=== PATIENT | female | born 1945 | race Asian ===

== ENCOUNTER → 2019-05-19 | Day surgery (SDC) | payer OTHER ==
--- NOTE | 2019-05-22 10:58 | OP ---
DATE OF OPERATION: 05/19/2019 PREOPERATIVE DIAGNOSIS: Left breast mass at the 5 o'clock position 1-2 cm from the nipple. POSTOPERATIVE DIAGNOSIS: Left breast mass at the 5 o'clock position 1-2 cm from the nipple. PROCEDURE: Left ultrasound-guided core biopsy and clip placement. ANESTHESIA: Local. ATTENDING SURGEON: Sluma Stapleton MD ESTIMATED BLOOD LOSS: Minimal. COMPLICATIONS: None. PROCEDURE: Patient was made aware of the risks and benefits of the procedure and consented. She was placed in a supine position. Under sterile conditions, 1% lidocaine for local anesthesia, a small cheryl was made in the skin. Using a 13-gauge suction biopsy device via lateral approach under ultrasound guidance, multiple cores were obtained and submitted to Pathology. Likewise, under ultrasound guidance, a bowtie clip was placed into the biopsy region. Well tolerated by patient. Steri-Strips and a sterile bandage was applied. We will contact her with the results. SULMA STAPLETON M.D. [id number]
--- NOTE | 2019-05-22 14:32 | PATH ---
Surgical Pathology Report Patient Name: ANGEL MUNOZ [facility]. Rec. #: [id number] /Age/Gender: 1945 (Age: 74) / F Account: [id number] Location: [facility] RAD[facility] U Taken: 05/19/2019 Received: 05/19/2019 Reported: 05/22/2019 Physicians: Sulma Stapleton M.D. Specimen(s) Received LEFT BREAST CORE BIOPSY 5:00 1-2 CM FN Clinical History Nonpalpable lesion Ultrasound findings: Suspicious Final Diagnosis BREAST, LEFT, 5:00 1-2 CM FN, CORE BIOPSY: BENIGN BREAST TISSUE SHOWING FIBROADENOMA. Electronically Signed María Phipps M.D. Gross Description Received in formalin labeled "left breast bx 5:00 1-2 cm FN " are 5 chambers-yellow, cylindrical portions of fibroadipose tissue ranging from 0.5- 1.2 cm in length and averaging 0.4 cm in diameter. Entirely submitted in one cassette. Time to formalin fixation: <1 minute Total formalin fixation time: 6 hours. SOLOMON/05/19/2019 dale/05/19/2019
== END | disposition home or self-care (01) ==
LOC: FRADUS-SUR 14:11
PROVIDERS: ATTEND Surgery Surgical Oncology
PROC: 0HBU3ZX Excision of Left Breast, Percutaneous Approach, Diagnostic (ICD-10-PCS; principal; 2019-05-19)
DX: D24.2 Benign neoplasm of left breast (principal); N63.23 Unspecified lump in the left breast, lower outer quadrant
CPT/HCPCS: 19083; 87899; 88305-TC; A4648

== ENCOUNTER 2019-07-18 06:57 | Day surgery (SDC) | payer OTHER ==
[2019-07-14 16:08] VITALS: BMI 23.8
--- NOTE | 2019-07-17 09:29 | HP ---
Admitting History and Physical - Primary Care Physician PCP: Sulma Stapleton - Admission Chief Complaint: Left breast mass History of Present Illness: 74 year old postmenapausal female with mammogram and US 04/10/2019 showing dense breasts and highly suspicious left breast mass Birad 5. US core biopsy left breast 05/19/2019 showed fibroadenoma which is discordinant with films. Excision advised. History Source: Patient Limitations to Obtaining History: Language Barrier, Other (speaks Icelandic) - Smoking History Smoking history: Never smoked Have you smoked in the past 12 months: No - Alcohol/Substance Use Hx Alcohol Use: No Home Medications - Allergies Allergies/Adverse Reactions: Allergies Allergy/AdvReac Type Severity Reaction Status Date / Time No Known Allergies Allergy Verified 07/14/19 16:03 - Home Medications Home Medications: Ambulatory Orders NK [No Known Home Medication] 07/14/19 Family Medical History Family History: Denies Physical Examination Constitutional: Yes: Well Nourished Breast(s): Yes: Other (Breast dense symmetrical diffusely nodular) Problem List - Problems (1) Left breast mass Code(s): N63.20 - UNSPECIFIED LUMP IN THE LEFT BREAST, UNSPECIFIED QUADRANT Assessment/Plan Left breast wide excision with mammogram needle localization
[2019-07-18] MEDS ORDERED: KETOROLAC TROMETHAMINE 30 MG/1 ML VIAL IVPUSH PRN (09:49)
[2019-07-18] MEDS ORDERED: ONDANSETRON 4 MG/2 ML VIAL IVPUSH PRN ×2 (09:49→11:09)
[2019-07-18] MEDS ORDERED: LIDOCAINE HCL 1%, 10 MG/ML (20ML VIAL) ONE (09:55)
[2019-07-18] MEDS ORDERED: BUPIVACAINE HCL/PF 0.5% (5MG/ML) 10 ML VIAL ONE (09:56)
[2019-07-18] MEDS ORDERED: MIDAZOLAM HCL 2 MG/2 ML SINGLE DOSE VIAL ONE (09:58)
[2019-07-18] MEDS ORDERED: DEXTROSE 5%-0.45% SALINE 1,000 ML IV SCH (10:00)
[2019-07-18] MEDS ORDERED: KETOROLAC TROMETHAMINE 30 MG/1 ML VIAL ONE (11:03)
[2019-07-18] MEDS ORDERED: oxyCODONE HCL 5 MG TABLET PO PRN (11:09)
[2019-07-18] MEDS ORDERED: LACTATED RINGERS SOLUTION 1,000 ML IV SCH (11:15)
[2019-07-18 12:36] VITALS: PULSE 68; TEMP 98
[2019-07-18 12:38] VITALS: BP 136/63
--- NOTE | 2019-07-18 17:03 | OP ---
DATE OF OPERATION: 07/18/2019 PREOPERATIVE DIAGNOSIS: Left breast mass, discordant biopsy. PROCEDURE: Left mammographically localized partial mastectomy. ANESTHESIA: General. ATTENDING SURGEON: Sulma Johnson MD ESTIMATED BLOOD LOSS: Minimal. COMPLICATIONS: None. DESCRIPTION OF PROCEDURE: Patient was made aware of the risks and benefits of the procedure and consented. She was placed in a supine position after going to the radiology suite where a needle and wire were placed next to the indexed lesion. After general anesthesia was induced, the patient was intubated. The operative site was prepped and draped in the usual sterile fashion. A periareolar incision was then made using electrocautery. Thick skin flaps were made. The needle was drawn through the puncture site and the wire through the wound. Tissues around the wire were then sharply excised then submitted with a short suture superior, long suture lateral. Specimen radiograph confirmed the presence of the indexed lesion. It was felt to be a little bit close to the lateral margin, so additional lateral segment was taken with a clip at the new margin. The wound was copiously irrigated with normal saline. Hemostasis maintained by electrocautery. The wound was then closed with a deep 3-0 Vicryl followed by a running subcuticular 4-0 Monocryl. Dermabond, sterile dressing, and a compression bra were then applied, and the patient, having tolerated the procedure well, was transferred to the recovery room in excellent condition. SULMA PINEDA M.D. [id number]
--- NOTE | 2019-07-21 15:28 | PATH ---
Surgical Pathology Report Patient Name: ANGEL MUNOZ [facility]. Rec. #: [id number] /Age/Gender: 1945 (Age: 74) / F Account: [id number] Location: [facility] Taken: 07/18/2019 Received: 07/18/2019 Reported: 07/21/2019 Physicians: Sulma Stapleton M.D. Specimen(s) Received A: BREAST, LEFT, WIDE EXCISION B: BREAST, LEFT, LATERAL SEGMENT Clinical History None given Final Diagnosis A. BREAST, LEFT, WIDE EXCISION: FIBROADENOMA. REMAINDER OF BREAST PARENCHYMA SHOWS STROMAL FIBROSIS, USUAL DUCTAL HYPERPLASIA, AND CHANGES OF PRIOR BIOPSY. B. BREAST, LEFT, LATERAL SEGMENT, EXCISION: BENIGN BREAST PARENCHYMA. Electronically Signed Yulia Hopkins M.D. Gross Description A. Received in formalin, labeled "left breast wide excision," is a 2.8 x 2.8 x 1.4 cm. chambers-yellow, irregular, portion of fibroadipose tissue with a needle localization wire present. There is a short suture marking the superior aspect and a long suture marking the lateral aspect, per the surgeon. There is no skin or nipple present. The specimen is inked as follows: superior and lateral blue; inferior green; medial yellow; anterior red; deep black. The specimen is serially sectioned from medial to lateral. Sectioning reveals a 0.9 x 0.5 x 0.5 cm chambers, indurated mass containing a wheat metallic biopsy clip. The mass is 0.1 cm from the inferior margin, 0.1 cm from the superior margin, 0.2 cm from the lateral margin, 0.3 cm from the anterior margin and 0.8 cm from the deep margin. The specimen is entirely and sequentially submitted in 6 cassettes with the lateral margin in cassette 1, the medial margin in cassettes 6 and the mass in cassettes 2-3. Total formalin fixation time: Approximately 50 hours B. Received in formalin labeled "lateral segment left breast," is a 2.5 x 1.5 x 0.7 cm portion of fibroadipose tissue with a clip marking the new margin, per the surgeon. The new margin is inked black and the specimen is serially sectioned. The specimen is entirely submitted in 3 cassettes. 07/19/2019 saudi07/19/2019
== END 2019-07-18 13:15 | disposition home or self-care (01) ==
LOC: FASU 06:57
PROVIDERS: ATTEND Surgery Surgical Oncology
PROC: 0HBU0ZZ Excision of Left Breast, Open Approach (ICD-10-PCS; principal; 2019-07-18 10:24)
DX: D24.2 Benign neoplasm of left breast (principal)
CPT/HCPCS: 19281; 88307-TC; 94760